=== PATIENT | female | born 1980 | race Caucasian/White ===

== ENCOUNTER 2017-06-23 17:25 | Emergency (ER) | payer BC ==
--- NOTE | 2017-06-23 17:55 | Emergency Department Record ---
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 For one month she has had vision changes in her left lateral vision. She describes it as peripheral aura. She sees straight lines that become wavy. No loss of vision. No pain. No headaches. No difficulties walking, no speech changes, no swallowing changes. No numbness or tingling. chief complaint: Vision change Onset/Timin -: Week(s) Onset Description: Gradual Location: Left eye If Injury: None Eye Symptoms: Other Severity: Moderate Associated Symptoms: None Treatments Prior to Arrival: Other - Related Data Home Medications Medication Instructions Recorded Confirmed Last Taken Escitalopram Oxalate [Lexapro] 10 mg PO DAILY 06/23/17 06/23/17 06/23/17 Allergies Allergy/AdvReac Type Severity Reaction Status Date / Time cephalexin monohydrate Allergy Mild hives Verified 06/23/17 17:34 [From Keflex] Penicillins Allergy Mild hives Verified 06/23/17 17:34 Travel Screening - Travel/Exposure Within Last 30 Days Have you traveled within the last 30 days?: No - Travel/Exposure Within Last Year Have you traveled outside the [place] in the last year?: No - Additonal Travel Details Have you been exposed to anyone with a communicable illness?: No - Travel Symptoms Symptom Screening: None Review of Systems Constitutional: Denies: Chills, Fever, Malaise, Weakness Eyes: Reports: Vision change. Denies: Eye discharge, Eye pain, Photophobia ENT: Denies: Congestion, Throat pain Respiratory: Denies: Cough, Dyspnea, Hemoptysis, Stridor, Wheezes Cardiovascular: Denies: Chest pain, Palpitations, Syncope Endocrine: Denies: Fatigue, Polydipsia, Polyuria Gastrointestinal: Denies: Abdominal pain, Diarrhea, Nausea, Vomiting Genitourinary: Denies: Dyspareunia, Dysuria, Frequency, Hematuria, Urgency Musculoskeletal: Denies: Arthralgia, Back pain, Joint swelling, Myalgia, Neck pain Skin: Denies: Change in color, Lesions Neurological: Denies: Abnormal gait, Confusion, Headache, Numbness, Paresthesias , Tingling, Tremors, Vertigo, Weakness Psychiatric: Denies: Anxiety Hematological/Lymphatic: Denies: Blood Clots, Easy bleeding, Easy bruising, Swollen glands Past Medical History - SOCIAL HISTORY Smoking Status: Never smoker Alcohol Use: None Drug Use: None - RESPIRATORY Hx Respiratory Disorders: No - CARDIOVASCULAR Hx Cardio Disorders: No - NEURO Hx Neuro Disorders: No - GI Hx GI Disorders: No - Hx Genitourinary Disorders: No - ENDOCRINE Hx Endocrine Disorders: No - MUSCULOSKELETAL Hx Musculoskeletal Disorders: No - PSYCH Hx Psych Problems: Yes Hx Depression: Yes - HEMATOLOGY/ONCOLOGY Hx Hematology/Oncology Disorders: No Family Medical History Any Significant Family History?: No Physical Exam - General General Appearance: Alert, Oriented x3, Cooperative, No acute distress Limitations: No limitations - Head Head exam: Atraumatic, Normocephalic, Normal inspection Head exam detail: negative: Abrasion, Contusion, Hematoma, Laceration - Eye Eye exam: Normal appearance, PERRL, EOMI. negative: Conjunctival injection, Nystagmus, Periorbital swelling Pupils: Normal accommodation, Other (bilateral disc haziness with indistinct edges CW papilledema). negative: Irregular, Unequal IOP measured with: other (Per her project archivist pressures were 11 and 12) - ENT ENT exam: Normal exam, Mucous membranes moist Ear exam: Normal external inspection Nasal Exam: Normal inspection Mouth exam: Normal external inspection - Neck Neck exam: Normal inspection, Full ROM. negative: Lymphadenopathy, Tenderness - Respiratory Respiratory exam: Normal lung sounds bilaterally. negative: Respiratory distress - Cardiovascular Cardiovascular Exam: Regular rate, Normal rhythm, Normal heart sounds Peripheral Pulses: 2+: Radial (R), Radial (L) - Rectal Rectal exam: Deferred - exam: Deferred - Extremities Extremities exam: Normal inspection, Full ROM, Normal capillary refill. negative: Tenderness - Neurological Neurological exam: Alert, CN II-XII intact, Normal gait, Oriented X3, Other. negative: Abnormal gait, Altered, Motor sensory deficit, Reflexes normal - Psychiatric Psychiatric exam: Normal affect, Normal mood - Skin Skin exam: Dry, Intact, Normal color, Warm Course Vital Signs 06/23/17 17:35 Temperature 99.1 F Pulse Rate 75 Respiratory 18 Rate Blood Pressure 157/78 Pulse Ox 97 - Reevaluation(s) Reevaluation #1: I SW Dr De Souza of neurology regarding the patient's presentation to the ED. His recommendations for initial work up are for CT with and without contrast and CTA and CTV. I SW the radiologist. The CT with and without can be performed. The CTA and CTV are test rarely performed at [facility] and serious questions were broughtup as to whether the studies could be performed here. He recommends not performing these tests at [facility] due significant lack of expertise with these tests. Dr De Souza did agree that the work up could be completed at [facility] with ophthalmology and neurology consultations and MRI availability at [facility] that is not available at [facility]. The patient was informed and agrees with the plan and likely transfer. 06/23/17 18:20 06/23/17 18:44 Reevaluation #2: The patient's labs were reviewed No acute changes 06/23/17 18:48 Medical Decision Making - Lab Data Result diagrams: 06/23/17 18:04 06/23/17 18:04 Disposition Disposition: Transfer Clinical Impression: Papilledema, Visual changes Disposition: Acute Care Hospital Transfer Transfer To: [facility] Reason For Transfer: Neuro consult Accepting Physician: Hospitalist per Dr Cardoza's note Time Discussed w/Accepting Physician: 20:00 Condition: (2) Stable Forms: Patient Portal Access Time of Disposition: : Quality - Quality Measures Quality Measures: N/A - Blood Pressure Screening Does Patient Have Any of the Following: No Blood Pressure Classification: Hypertensive Reading Systolic Measurement: 147 Diastolic Measurement: 78 Screening for High Blood Pressure: < Pre-Hypertensive BP, F/U Documented > [ G8950] Pre-Hypertensive Follow-up Interventions: Referral to alternative/primary care provider.
[2017-06-23 18:14] LABS: EOS % 4.6 % (0-6); GRAN % 58.4 % (47-80); HEMATOCRIT 42.6 % (35.0-47.0); HEMOGLOBIN 14.7 gm/dl (11.6-16.0); LYMPH % 27.3 % (16-45); MEAN CELL VOLUME 90.1 fl (81-97); MEAN CORPUSCULAR HEMOGLOBIN 31.1 pg (27-33); MEAN CORPUSCULAR HGB CONC 34.5 g/dl (32-36); MEAN PLATELET VOLUME 11.9 fl (7.4-10.4); MONO % 8.7 % (0-9); PLATELET COUNT 221 K/uL (130-400); RED BLOOD COUNT 4.73 M/uL (3.80-5.40); RED CELL DISTRIBUTION WIDTH 12.2 % (11.5-14.5); WHITE BLOOD COUNT W/O DIFF 6.3 K/uL (4.2-12.2)
[2017-06-23 18:26] LABS: INR 0.97; PARTIAL THROMBOPLASTIN TIME 29.7 SECONDS (24.5-39.1); PROTHROMBIN TIME (PATIENT) 10.5 SECONDS (9.5-12.1)
[2017-06-23 18:39] LABS: ALB/GLOB RATIO 1.4 (1.1-1.8); ALBUMIN 4.3 g/dL (4.0-5.0); ALKALINE PHOSPHATASE 62 U/L (35-104); ALT/SGPT 21 U/L (<33); AST/SGOT 24 U/L (10.0-35.0); BLOOD UREA NITROGEN 30.7 mg/dL (12.6-42.6); C-REACTIVE PROTEIN 0.4 mg/L (<5.0); CREATININE 0.5 mg/dL (0.5-0.9); EST GLOMERULAR FILTRATION RATE > 60 mL/min; GLUCOSE,RANDOM 94 mg/dL (74-109); THYROID STIMULATING HORMONE 2.94 uIU/mL (0.270-4.20); TOTAL PROTEIN 7.3 g/dL (6.6-8.7)
[2017-06-23 18:56] LABS: ERYTHROCYTE SEDIMENTATION RATE 7 mm/hr (0-20)
--- NOTE | 2017-06-23 20:34 | Emergency Department Record ---
History of Present Illness - General Chief complaint: Eye Problem Stated complaint: SENT BY HER DR TO HAVE SOME IMAGING Time Seen by Provider: 06/23/17 17:37 Source: Patient Mode of Arrival: Ambulatory Limitations: No limitations - History of Present Illness MD chief complaint: Vision change Onset/Timin -: Week(s) Onset Description: Gradual Location: Left eye If Injury: None Eye Symptoms: Other Severity: Moderate Associated Symptoms: None Treatments Prior to Arrival: Other - Related Data Home Medications Medication Instructions Recorded Confirmed Last Taken Escitalopram Oxalate [Lexapro] 10 mg PO DAILY 06/23/17 06/23/17 06/23/17 Allergies Allergy/AdvReac Type Severity Reaction Status Date / Time cephalexin monohydrate Allergy Mild hives Verified 06/23/17 17:34 [From Keflex] Penicillins Allergy Mild hives Verified 06/23/17 17:34 Travel Screening - Travel/Exposure Within Last 30 Days Have you traveled within the last 30 days?: No - Travel/Exposure Within Last Year Have you traveled outside the [place] in the last year?: No - Additonal Travel Details Have you been exposed to anyone with a communicable illness?: No - Travel Symptoms Symptom Screening: None Review of Systems Constitutional: Denies: Chills, Fever, Malaise, Weakness Eyes: Reports: Vision change. Denies: Eye discharge, Eye pain, Photophobia ENT: Denies: Congestion, Throat pain Respiratory: Denies: Cough, Dyspnea, Hemoptysis, Stridor, Wheezes Cardiovascular: Denies: Chest pain, Palpitations, Syncope Endocrine: Denies: Fatigue, Polydipsia, Polyuria Gastrointestinal: Denies: Abdominal pain, Diarrhea, Nausea, Vomiting Genitourinary: Denies: Dyspareunia, Dysuria, Frequency, Hematuria, Urgency Musculoskeletal: Denies: Arthralgia, Back pain, Joint swelling, Myalgia, Neck pain Skin: Denies: Change in color, Lesions Neurological: Denies: Abnormal gait, Confusion, Headache, Numbness, Paresthesias , Tingling, Tremors, Vertigo, Weakness Psychiatric: Denies: Anxiety Hematological/Lymphatic: Denies: Blood Clots, Easy bleeding, Easy bruising, Swollen glands Past Medical History - SOCIAL HISTORY Smoking Status: Never smoker Alcohol Use: None Drug Use: None - RESPIRATORY Hx Respiratory Disorders: No - CARDIOVASCULAR Hx Cardio Disorders: No - NEURO Hx Neuro Disorders: No - GI Hx GI Disorders: No - Hx Genitourinary Disorders: No - ENDOCRINE Hx Endocrine Disorders: No - MUSCULOSKELETAL Hx Musculoskeletal Disorders: No - PSYCH Hx Psych Problems: Yes Hx Depression: Yes - HEMATOLOGY/ONCOLOGY Hx Hematology/Oncology Disorders: No Family Medical History Any Significant Family History?: No Physical Exam - General Limitations: No limitations - Eye IOP measured with: other (Per her materials recycler pressures were 11 and 12) Course Vital Signs 06/23/17 17:35 Temperature 99.1 F Pulse Rate 75 Respiratory 18 Rate Blood Pressure 157/78 Pulse Ox 97 - Reevaluation(s) Reevaluation #1: 06/23/17 20:33 CT Brain: Nothing acute. [facility]-call contacted to facilitate transfer for CTA/CTV as well as neurology and ophthalmology consultation for the patient's papilledema. Reevaluation #2: 06/23/17 20:54 Case was discussed with the Hospitalist Dr. Batres and ED Provider Dr. Andino, will accept transfer ED-ED at this time. Patient is requesting to be transferred by private car, appears stable for transfer via car with her mother driving to go immediately to the ED for further evaluation. Medical Decision Making - Lab Data Result diagrams: 06/23/17 18:04 06/23/17 18:04 Lab Results 06/23/17 06/23/17 06/23/17 Range/Units 18:04 18:04 18:04 WBC 6.3 (4.2-12.2) K/uL RBC 4.73 (3.80-5.40) M/uL Hgb 14.7 (11.6-16.0) gm/dl Hct 42.6 (35.0-47.0) % MCV 90.1 (81-97) fl MCH 31.1 (27-33) pg MCHC 34.5 (32-36) g/dl RDW 12.2 (11.5-14.5) % Plt Count 221 (130-400) K/uL MPV 11.9 H (7.4-10.4) fl Gran % 58.4 (47-80) % Lymphocytes % 27.3 (16-45) % Monocytes % 8.7 (0-9) % Eosinophils % 4.6 (0-6) % Basophils % 1.0 (0-6) % ESR 7 (0-20) mm/hr PT 10.5 (9.5-12.1) SECONDS INR 0.97 APTT 29.70 (24.5-39.1) SECONDS Sodium 139 (136-145) mmol/L Potassium 3.5 (3.4-4.5) mmol/L Chloride 103 (98-107) mmol/L Carbon Dioxide 23.0 (22-29) mmol/L Anion Gap 13.0 (7-16) BUN 30.7 (12.6-42.6) mg/dL Creatinine 0.5 (0.5-0.9) mg/dL Estimated GFR > 60 mL/min Random Glucose 94 (74-109) mg/dL Calcium 8.9 (8.6-10.0) mg/dL Total Bilirubin 1.30 H (0.2-1.0) mg/dL AST 24 (10.0-35.0) U/L ALT 21 (<33) U/L Alkaline Phosphatase 62 (35-104) U/L C-Reactive Protein 0.4 (<5.0) mg/L Total Protein 7.3 (6.6-8.7) g/dL Albumin 4.3 (4.0-5.0) g/dL Globulin 3.0 (1.4-4.8) gm/dL Albumin/Globulin Ratio 1.4 (1.1-1.8) TSH 2.94 (0.270-4.20) uIU/mL Urine HCG, Qual (NEGATIVE) 06/23/17 Range/Units 19:00 WBC (4.2-12.2) K/uL RBC (3.80-5.40) M/uL Hgb (11.6-16.0) gm/dl Hct (35.0-47.0) % MCV (81-97) fl MCH (27-33) pg MCHC (32-36) g/dl RDW (11.5-14.5) % Plt Count (130-400) K/uL MPV (7.4-10.4) fl Gran % (47-80) % Lymphocytes % (16-45) % Monocytes % (0-9) % Eosinophils % (0-6) % Basophils % (0-6) % ESR (0-20) mm/hr PT (9.5-12.1) SECONDS INR APTT (24.5-39.1) SECONDS Sodium (136-145) mmol/L Potassium (3.4-4.5) mmol/L Chloride (98-107) mmol/L Carbon Dioxide (22-29) mmol/L Anion Gap (7-16) BUN (12.6-42.6) mg/dL Creatinine (0.5-0.9) mg/dL Estimated GFR mL/min Random Glucose (74-109) mg/dL Calcium (8.6-10.0) mg/dL Total Bilirubin (0.2-1.0) mg/dL AST (10.0-35.0) U/L ALT (<33) U/L Alkaline Phosphatase (35-104) U/L C-Reactive Protein (<5.0) mg/L Total Protein (6.6-8.7) g/dL Albumin (4.0-5.0) g/dL Globulin (1.4-4.8) gm/dL Albumin/Globulin Ratio (1.1-1.8) TSH (0.270-4.20) uIU/mL Urine HCG, Qual Negative (NEGATIVE) Disposition Disposition: Transfer Clinical Impression: Papilledema, Visual changes Disposition: Acute Care Hospital [facility] Reason For Transfer: Neurology/Ophthalmology consultation Accepting Physician: Medardo/Sina Time Discussed w/Accepting Physician: 20:56 Condition: (2) Stable Forms: Patient Portal Access Time of Disposition: 20:56 Quality - Quality Measures Quality Measures: N/A - Blood Pressure Screening Does Patient Have Any of the Following: No Blood Pressure Classification: Hypertensive Reading Systolic Measurement: 147 Diastolic Measurement: 78 Screening for High Blood Pressure: < First Hypertensive BP, F/U Documented > [ G8950] First Hypertensive Follow-up Interventions: Referral to alternative/primary care provider.
--- NOTE | 2017-06-24 08:24 | CT SCAN REPORT ---
EXAM: HEAD CT HISTORY: PAPILLEDEMA, WAVY VISION LEFT EYE FOR TWO WEEKS. TECHNIQUE: Axial CT scan of the head was performed without IV contrast. Comparison: None. FINDINGS: No definite acute intracranial hemorrhage identified. No focal mass effect or midline shift apparent. No definite acute infarct or intracranial mass lesion is seen. Mild membrane thickening in the ethmoid sinuses. Moderate opacification of the left maxillary sinus. No depressed calvarial fracture is evident. If neurologic symptoms persist, follow-up brain MRI may be useful for further evaluation if not contraindicated. IMPRESSION: 1. NO ACUTE INTRACRANIAL HEMORRHAGE OR FOCAL MASS EFFECT EVIDENT. 2. MODERATE OPACIFICATION OF THE LEFT MAXILLARY SINUS AND MILD MEMBRANE THICKENING IN THE ETHMOIDS. JOB NUMBER: [id number] AND [id number] [facility]
== END 2017-06-23 21:09 | disposition short-term general hospital (02) ==
LOC: ER 17:25
DX: H47.10 Unspecified papilledema (principal); H53.8 Other visual disturbances
CPT/HCPCS: 70450; 80053; 81025; 84443; 85025; 85610; 85651; 85730; 86140; 99285